=== PATIENT | male | born 1940 | race African-American/Black ===

== ENCOUNTER 2018-08-19 23:34 | Emergency (ER) | payer MEDICARE, OTHER ==
--- NOTE | 2018-08-20 09:50 | CT ---
PRELIMINARY REPORT/[facility]/EMERGENTY AFTER-HOURS PROCEDURE CT Head Without Intravenous Contrast CLINICAL HISTORY: 78 years old, male; Injury or trauma; Fall; Initial encounter; Abrasion; Forehead and scalp TECHNIQUE: Axial computed tomography images of the head/brain without intravenous contrast. COMPARISON: No relevant prior studies available. FINDINGS: Brain: Scattered areas of hypoattenuation, likely chronic small vessel ischemic change, demyelination , or gliosis. 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 Ventricles: Normal. Bones/joints: Normal. No acute fracture. Soft tissues: Right frontal soft tissue swelling and laceration. Minimal left frontal soft tissue swe lling/contusion. Vasculature: Atherosclerotic vascular calcifications. Sinuses: Ethmoid sinus disease. Mastoid air cells: Normal as visualized. No mastoid effusion. IMPRESSION: 1. No acute intracranial abnormality. 2. Right frontal soft tissue swelling and laceration. 3. Minimal left frontal soft tissue swelling/contusion. 4. Incidental/non-acute findings are described above. Thank you for allowing us to participate in the care of your patient. Dictated and Authenticated by: Fili Yañez MD 08/20/2018 12:44 AM Central Time ([place] & [place]) FINAL REPORT CT HEAD NONCONTRAST: DATE: 08/20/2018. TIME: Performed on an emergency basis at 0017 hours. HISTORY: Fall. Head injury. FINDINGS: Agree with the preliminary report by Dr. Yañez from final report. No acute intracranial abnormaliti es are demonstrated. Right frontal scalp contusion is apparent. POS: [facility]
== END 2018-08-20 02:00 ==
LOC: NAV ERS 23:34
DX: S06.0X0A Concussion without loss of consciousness, initial encounter (principal); S00.03XA Contusion of scalp, initial encounter; I10 Essential (primary) hypertension; E11.9 Type 2 diabetes mellitus without complications; Z99.2 Dependence on renal dialysis; J44.9 Chronic obstructive pulmonary disease, unspecified; W19.XXXA Unspecified fall, initial encounter
CPT/HCPCS: 70450